=== PATIENT | female | born 1965 | race Caucasian/White ===

== ENCOUNTER 2016-05-08 07:16 | Inpatient (IN) | payer MEDICARE, MEDICAID ==
[~2016-05-08] VITALS: Ht 170.2 cm; Wt 72.6 kg
[2016-05-08] VITALS (7 sets, daily range): BP systolic 100–149; BP diastolic 58–96
[~2016-05-08 07:16] MED LIST: BENZ2TAB10 PO; DIVA500T69 PO; PALI156D IM
[2016-05-08 07:26] LABS: GLUCOSE,POINT OF CARE 140 MG/DL (70-110)
[2016-05-08] MEDS ORDERED: LURA40 PO (07:34)
[2016-05-08] MEDS ORDERED: PARO20TA24 PO (07:34)
[2016-05-08] MEDS ORDERED: ZIPR60CA2 PO (07:34)
[2016-05-08] MEDS ORDERED: ACETAMINOPHEN 325 MG TABLET PO ONE (07:45)
[2016-05-08 08:26] LABS: EOSINOPHILS % (AUTO) 0.1 % (1.0-6.0); HEMATOCRIT 39.8 % (36-46); HEMOGLOBIN 13.4 g/dL (12.0-16.0); LYMPHOCYTES # (AUTO) 1.4 K/uL (1.0-4.8); LYMPHOCYTES % (AUTO) 17.7 % (22.0-44.0); MEAN CORPUSCULAR HEMOGLOBIN 32.7 pg (26.0-34.0); MEAN CORPUSCULAR HGB CONC 33.6 G/dL (31.0-37.0); MEAN CORPUSCULAR VOLUME 97 fL (80-100); MONOCYTES # (AUTO) 0.6 K/uL (0.1-1.0); MONOCYTES % (AUTO) 6.9 % (2.0-9.0); NEUTROPHILS % (AUTO) 75.3 % (40.0-70.0); PLATELET COUNT (AUTO) 285 K/uL (150-450); RED BLOOD CELL COUNT(AUTO) 4.09 MIL/uL (4.00-5.20); RED CELL DISTRIBUTION WIDTH 14.3 % (11.5-14.5)
[2016-05-08 08:32] LABS: ANION GAP 10 mmol/L (8-16); CALCIUM, TOTAL 8.3 mg/dL (8.8-10.5); CARBON DIOXIDE 27 mmol/L (22-29); CHLORIDE 100 mmol/L (98-107); CREATININE 0.61 mg/dL (0.60-1.30); GLOMERULAR FILTR. RATE CALC > 60 mL/min (>60); POTASSIUM 3.4 mmol/L (3.5-5.1); SODIUM SERUM 137 mmol/L (136-145); UREA NITROGEN, BLOOD 16 mg/dL (7-18)
[2016-05-08 08:38] LABS: ALANINE AMINOTRANSFERASE 27 U/L (12-78); ALBUMIN 3.7 g/dL (3.4-5.0); ASPARTATE AMINOTRANSFERASE 24 U/L (15-37); BILIRUBIN,TOTAL 0.4 mg/dL (0.1-1.0)
[2016-05-08 08:39] LABS: VALPROIC ACID < 3 mcg/mL (50-100)
[2016-05-08] MEDS ORDERED: HALOPERIDOL LACTATE 5 MG/ML VIAL IM ONE (09:15)
[2016-05-08] MEDS ORDERED: LORazepam 2 MG/ML VIAL IM ONE (09:15)
[2016-05-08] MEDS ORDERED: GuaiFENesin/D-METHORPHAN [SUGAR-FREE] 200-20MG/10 ML SYRUP UDCUP PO PRN (09:30)
[2016-05-08] MEDS ORDERED: HydrOXYzine PAMOATE 50 MG CAPSULE PO PRN (09:30)
[2016-05-08] MEDS ORDERED: DIAZEPAM 10 MG TABLET PO PRN (09:30)
[2016-05-08] MEDS ORDERED: ZOLPIDEM TARTRATE 10 MG TABLET PO PRN (09:30)
[2016-05-08] MEDS ORDERED: OLANZapine 5 MG RAPDIS TABLET PO PRN (09:30)
[2016-05-08] MEDS ORDERED: CYANOCOBALAMIN 1,000 MCG/ML VIAL IM ONE (09:30)
[2016-05-08] MEDS ORDERED: LOPERAMIDE HCL 2 MG CAPSULE PO PRN (09:30)
[2016-05-08] MEDS ORDERED: PALIPERIDONE PALMITATE 234 MG/1.5 ML SYRINGE IM ONE (11:00)
[2016-05-08] MEDS ORDERED: LORazepam 2 MG TABLET PO PRN (11:00)
[2016-05-08] MEDS ORDERED: POTASSIUM CHLORIDE 20 MEQ ER TABLET PO ONE (12:00)
[2016-05-08] MEDS ORDERED: INSULIN ASPART 100 UNITS/ML SQ PRN (12:15)
[2016-05-08] MEDS ORDERED: DEXTROSE 50%-WATER 25 GM/50 ML SYRINGE IVP PRN (12:30)
[2016-05-08] MEDS: NICOTINE 21 MG/24 HOUR PATCH TD SCH (13:22)
[2016-05-08] MEDS: THIAMINE HCL 100 MG TABLET PO SCH (17:00)
[2016-05-08] MEDS: MetFORMIN HCL 500 MG TABLET PO SCH (17:00)
[2016-05-08 17:07] LABS: GLUCOSE,POINT OF CARE 95 MG/DL (70-110)
[2016-05-08] MEDS: DIVALPROEX SODIUM 500 MG ER TABLET PO SCH (20:19)
[2016-05-09 02:00] VITALS: BP 131/48
[2016-05-09] MEDS: LORazepam 2 MG TABLET PO PRN (04:08)
[2016-05-09 04:10] VITALS: BP 131/48
[2016-05-09 05:21] LABS: GLUCOSE,POINT OF CARE 89 MG/DL (70-110)
[2016-05-09 06:00] VITALS: BP 116/60
[2016-05-09] MEDS: MetFORMIN HCL 500 MG TABLET PO SCH ×2 (06:43→17:03)
[2016-05-09] MEDS ORDERED: LORazepam 2 MG TABLET PO PRN (07:00)
[2016-05-09] MEDS ORDERED: DIAZEPAM 10 MG TABLET PO PRN (07:00)
[2016-05-09 08:00] VITALS: BP 123/92
[2016-05-09] MEDS: PARoxetine HCL 10 MG TABLET PO SCH (08:21)
[2016-05-09] MEDS: FOLIC ACID 1 MG TABLET PO SCH (08:21)
[2016-05-09] MEDS: LORazepam 2 MG TABLET PO SCH ×4 (08:21→21:15)
[2016-05-09] MEDS: THIAMINE HCL 100 MG TABLET PO SCH ×2 (08:21→16:18)
[2016-05-09] MEDS: MULTIVITAMINS WITH MINERALS, THERAPEUTIC TABLET PO SCH (08:21)
[2016-05-09] MEDS: NICOTINE 21 MG/24 HOUR PATCH TD SCH (08:22)
[2016-05-09] MEDS ORDERED: DIAZEPAM 10 MG TABLET PO SCH (09:00)
[2016-05-09 10:00] VITALS: BP 130/89
[2016-05-09 16:21] LABS: GLUCOSE,POINT OF CARE 102 MG/DL (70-110)
[2016-05-09 19:03] VITALS: BP 122/81
[2016-05-09] MEDS: DIVALPROEX SODIUM 500 MG ER TABLET PO SCH (21:00)
[2016-05-10] MEDS: LORazepam 2 MG TABLET PO PRN (04:03)
[2016-05-10 04:11] LABS: GLUCOSE,POINT OF CARE 96 MG/DL (70-110)
[2016-05-10 04:35] VITALS: BP 119/76
[2016-05-10 04:39] VITALS: BP 119/76
[2016-05-10] MEDS: MetFORMIN HCL 500 MG TABLET PO SCH ×2 (06:49→17:12)
[2016-05-10] MEDS: MULTIVITAMINS WITH MINERALS, THERAPEUTIC TABLET PO SCH (07:59)
[2016-05-10] MEDS: LORazepam 2 MG TABLET PO SCH ×4 (08:00→20:31)
[2016-05-10] MEDS: PARoxetine HCL 10 MG TABLET PO SCH (08:00)
[2016-05-10] MEDS: NICOTINE 21 MG/24 HOUR PATCH TD SCH (08:00)
[2016-05-10] MEDS: THIAMINE HCL 100 MG TABLET PO SCH ×2 (08:00→17:10)
[2016-05-10] MEDS: FOLIC ACID 1 MG TABLET PO SCH (08:00)
[2016-05-10 09:42] VITALS: BP 124/72
[2016-05-10 09:43] VITALS: BP 124/72
[2016-05-10 16:31] LABS: GLUCOSE,POINT OF CARE 63 MG/DL (70-110)
[2016-05-10 17:16] LABS: GLUCOSE,POINT OF CARE 93 MG/DL (70-110)
[2016-05-10] MEDS: DIVALPROEX SODIUM 500 MG ER TABLET PO SCH (20:33)
[2016-05-10 20:49] VITALS: BP 130/78
[2016-05-11] MEDS: IBUPROFEN 600 MG TABLET PO PRN (02:59)
[2016-05-11 03:00] VITALS: BP 130/70
[2016-05-11 05:25] LABS: GLUCOSE,POINT OF CARE 85 MG/DL (70-110)
[2016-05-11] MEDS: MetFORMIN HCL 500 MG TABLET PO SCH ×2 (06:39→17:41)
[2016-05-11 06:49] VITALS: BP 98/65
[2016-05-11] MEDS ORDERED: LORazepam 1 MG TABLET PO PRN (07:00)
[2016-05-11] MEDS ORDERED: DIAZEPAM 5 MG TABLET PO PRN (07:00)
[2016-05-11] MEDS: LORazepam 1 MG TABLET PO SCH ×4 (08:53→20:36)
[2016-05-11] MEDS: MULTIVITAMINS WITH MINERALS, THERAPEUTIC TABLET PO SCH (08:53)
[2016-05-11] MEDS: PARoxetine HCL 10 MG TABLET PO SCH (08:54)
[2016-05-11] MEDS: NICOTINE 21 MG/24 HOUR PATCH TD SCH (08:54)
[2016-05-11] MEDS: FOLIC ACID 1 MG TABLET PO SCH (08:54)
[2016-05-11] MEDS: THIAMINE HCL 100 MG TABLET PO SCH ×2 (08:54→17:41)
[2016-05-11] MEDS ORDERED: DIAZEPAM 5 MG TABLET PO SCH (09:00)
[2016-05-11 10:31] VITALS: BP 103/77
[2016-05-11 10:32] VITALS: BP 103/77
[2016-05-11 16:05] VITALS: BP 131/76
[2016-05-11 16:47] LABS: GLUCOSE,POINT OF CARE 98 MG/DL (70-110)
[2016-05-11] MEDS ORDERED: PALI156D IM (18:29)
[2016-05-11] MEDS ORDERED: PARO10TA89 PO (18:29)
[2016-05-11] MEDS ORDERED: DIVA500T52 PO (18:29)
[2016-05-11] MEDS: DIVALPROEX SODIUM 500 MG ER TABLET PO SCH (20:35)
[2016-05-12 04:48] VITALS: BP 109/83
[2016-05-12] MEDS: IBUPROFEN 600 MG TABLET PO PRN (04:54)
[2016-05-12 06:07] LABS: GLUCOSE,POINT OF CARE 95 MG/DL (70-110)
[2016-05-12] MEDS ORDERED: DIAZEPAM 5 MG TABLET PO PRN (07:00)
[2016-05-12] MEDS ORDERED: LORazepam 1 MG TABLET PO PRN (07:00)
[2016-05-12] MEDS: MetFORMIN HCL 500 MG TABLET PO SCH (07:09)
[2016-05-12 08:05] VITALS: BP 112/80
[2016-05-12] MEDS: MULTIVITAMINS WITH MINERALS, THERAPEUTIC TABLET PO SCH (08:14)
[2016-05-12] MEDS: FOLIC ACID 1 MG TABLET PO SCH (08:14)
[2016-05-12] MEDS: THIAMINE HCL 100 MG TABLET PO SCH (08:15)
[2016-05-12] MEDS: PARoxetine HCL 10 MG TABLET PO SCH (08:15)
[2016-05-12] MEDS: NICOTINE 21 MG/24 HOUR PATCH TD SCH (08:15)
[2016-05-12] MEDS ORDERED: METF500T4 PO (08:32)
[2016-05-12] MEDS ORDERED: PARO10TA89 PO (08:32)
[2016-05-12] MEDS ORDERED: PALIPERIDONE PALMITATE 156 MG/ML SYRINGE IM ONE (09:00)
[2016-05-12 09:30] VITALS: BP 112/80
== END 2016-05-12 12:00 | disposition home or self-care (01) | DRG 885 ==
LOC: EEVIPCON 07:18 → EMS 07:18 → 3EX 10:30
PROVIDERS: ADMIT Psychiatry & Neurology Psychiatry; ATTEND Psychiatry & Neurology Psychiatry
DX: F25.0 Schizoaffective disorder, bipolar type (principal); R45.851 Suicidal ideations; E03.9 Hypothyroidism, unspecified; E78.00 Pure hypercholesterolemia, unspecified; E78.5 Hyperlipidemia, unspecified; F32.9 Major depressive disorder, single episode, unspecified; F41.9 Anxiety disorder, unspecified; I10 Essential (primary) hypertension; J44.9 Chronic obstructive pulmonary disease, unspecified; J45.909 Unspecified asthma, uncomplicated; K21.9 Gastro-esophageal reflux disease without esophagitis; F17.210 Nicotine dependence, cigarettes, uncomplicated; N28.9 Disorder of kidney and ureter, unspecified; B19.20 Unspecified viral hepatitis C without hepatic coma; Z87.440 Personal history of urinary (tract) infections; Z87.898 Personal history of other specified conditions; Z91.19 Patient's noncompliance with other medical treatment and regimen; Z88.8 Allergy status to other drugs, medicaments and biological substances; Z79.899 Other long term (current) drug therapy; Z98.890 Other specified postprocedural states
CPT/HCPCS: 82962; 96372; 99285; G0480; J1630; J2060; J3420

== ENCOUNTER 2016-12-18 15:19 | Inpatient (IN) | payer MEDICARE, MEDICAID ==
[~2016-12-18] VITALS: Ht 170.2 cm; Wt 68.7 kg
[~2016-12-18 15:19] MED LIST changes: -BENZ2TAB10 PO; +DIVA500T52 PO; +METF500T4 PO; +PARO10TA89 PO
[2016-12-18 18:34] LABS: BASOPHILS % (AUTO) 0.7 % (0.0-2.0); EOSINOPHILS % (AUTO) 1.3 % (1.0-6.0); HEMATOCRIT 39.7 % (36-46); HEMOGLOBIN 13.7 g/dL (12.0-16.0); LYMPHOCYTES # (AUTO) 2.8 K/uL (1.0-4.8); LYMPHOCYTES % (AUTO) 34.2 % (22.0-44.0); MEAN CORPUSCULAR HEMOGLOBIN 35.3 pg (26.0-34.0); MEAN CORPUSCULAR HGB CONC 34.7 G/dL (31.0-37.0); MEAN CORPUSCULAR VOLUME 102 fL (80-100); MONOCYTES # (AUTO) 0.5 K/uL (0.1-1.0); MONOCYTES % (AUTO) 6.4 % (2.0-9.0); NEUTROPHILS # (AUTO) 4.8 K/uL (1.8-7.7); NEUTROPHILS % (AUTO) 57.4 % (40.0-70.0); PLATELET COUNT (AUTO) 269 K/uL (150-450); RED BLOOD CELL COUNT(AUTO) 3.89 MIL/uL (4.00-5.20); RED CELL DISTRIBUTION WIDTH 14.1 % (11.5-14.5); WHITE BLOOD COUNT (AUTO) 8.3 K/uL (4.5-11.0)
[2016-12-18 18:50] LABS: ANION GAP 10 mmol/L (8-16); CALCIUM, TOTAL 8.5 mg/dL (8.8-10.5); CARBON DIOXIDE 25 mmol/L (22-29); CHLORIDE 107 mmol/L (98-107); CREATININE 0.71 mg/dL (0.60-1.30); GLOMERULAR FILTR. RATE CALC > 60 mL/min (>60); POTASSIUM 3.6 mmol/L (3.5-5.1); SODIUM SERUM 142 mmol/L (136-145); UREA NITROGEN, BLOOD 14 mg/dL (7-18)
[2016-12-18 18:56] LABS: RBC MORPHOLOGY COMMENT ABNORMAL RBC MORPH
[2016-12-18 18:58] LABS: ALANINE AMINOTRANSFERASE 13 U/L (12-78); ALBUMIN 3.4 g/dL (3.4-5.0); ASPARTATE AMINOTRANSFERASE 14 U/L (15-37); BILIRUBIN,TOTAL 0.2 mg/dL (0.1-1.0); TOTAL PROTEIN, SERUM 6.4 g/dL (6.4-8.2)
[2016-12-18 19:57] LABS: VALPROIC ACID < 3 mcg/mL (50-100)
[2016-12-18] MEDS ORDERED: ACETAMINOPHEN 500 MG TABLET PO ONE (20:00)
[2016-12-18] MEDS ORDERED: ZOLPIDEM TARTRATE 10 MG TABLET PO PRN (20:15)
[2016-12-18] MEDS ORDERED: LORazepam 2 MG TABLET PO PRN (20:15)
[2016-12-18] MEDS ORDERED: HALOPERIDOL 5 MG TABLET PO PRN (20:15)
[2016-12-19 00:48] VITALS: BP 118/68
[2016-12-19 08:58] VITALS: BP 108/69
[2016-12-19] MEDS: NICOTINE 21 MG/24 HOUR PATCH TD SCH (09:22)
[2016-12-19] MEDS: PARoxetine HCL 10 MG TABLET PO SCH (10:30)
[2016-12-19] MEDS ORDERED: PALIPERIDONE PALMITATE 234 MG/1.5 ML SYRINGE IM ONE (10:30)
[2016-12-19] MEDS ORDERED: ACETAMINOPHEN 325 MG TABLET PO PRN (16:15)
[2016-12-19 16:22] VITALS: BP 108/67
[2016-12-19] MEDS: DIVALPROEX SODIUM 500 MG ER TABLET PO SCH (20:59)
[2016-12-20 02:47] VITALS: BP 107/67
[2016-12-20] MEDS: HYDROCORTISONE 1% 30 GM OINTMENT TP SCH ×3 (07:00→17:06)
[2016-12-20 08:12] VITALS: BP 103/66
[2016-12-20] MEDS: PARoxetine HCL 10 MG TABLET PO SCH (09:00)
[2016-12-20] MEDS: NICOTINE 21 MG/24 HOUR PATCH TD SCH (09:21)
[2016-12-20 14:12] VITALS: BP 104/64
[2016-12-20 16:43] VITALS: BP 101/63
[2016-12-20] MEDS: DIVALPROEX SODIUM 500 MG ER TABLET PO SCH (21:00)
[2016-12-21] MEDS ORDERED: PNEUMOCOCCAL VACCINE POLYVALENT 0.5 ML VIAL [PPSV23] IM ONE (02:30)
[2016-12-21] MEDS ORDERED: -PHARMACY VACCINE NOTE- MISC ONE ×2 (02:30)
[2016-12-21 06:37] VITALS: BP 108/60
[2016-12-21 08:01] LABS: HEMOGLOBIN A1C 5.5 % (4.5-6.2)
[2016-12-21 08:12] LABS: CHOL/HDL RATIO 4.8 (3.9-5.7); THYROID STIMULATING HORMONE 3.7 uIU/mL (0.36-3.74)
[2016-12-21] MEDS: PARoxetine HCL 10 MG TABLET PO SCH (09:00)
[2016-12-21 09:37] VITALS: BP 104/62
[2016-12-21] MEDS: NICOTINE 21 MG/24 HOUR PATCH TD SCH (09:41)
[2016-12-21] MEDS: HYDROCORTISONE 1% 30 GM OINTMENT TP SCH ×2 (09:43→17:05)
[2016-12-21] MEDS ORDERED: MAGNESIUM HYDROXIDE SUSPENSION 30 ML UDCUP PO PRN (14:30)
[2016-12-21] MEDS ORDERED: MAG HYDROX/AL HYDROX/SIMETH ES 30 ML SUSPENSION UDCUP PO PRN (14:30)
[2016-12-21] MEDS ORDERED: LORazepam 2 MG TABLET PO PRN (14:30)
[2016-12-21] MEDS ORDERED: CYANOCOBALAMIN 1,000 MCG/ML VIAL IM ONE (14:30)
[2016-12-21] MEDS ORDERED: TUBERCULIN, PURIFIED PROTEIN DERIVATIVE 5 TU/0.1 ML SYG ID ONE (14:30)
[2016-12-21] MEDS ORDERED: GuaiFENesin/D-METHORPHAN [SUGAR-FREE] 200-20MG/10 ML SYRUP UDCUP PO PRN (14:30)
[2016-12-21] MEDS ORDERED: HydrOXYzine PAMOATE 50 MG CAPSULE PO PRN (14:30)
[2016-12-21] MEDS ORDERED: LOPERAMIDE HCL 2 MG CAPSULE PO PRN ×2 (14:30)
[2016-12-21] MEDS ORDERED: ACETAMINOPHEN 325 MG TABLET PO PRN (14:30)
[2016-12-21] MEDS ORDERED: PROMETHAZINE HCL 25 MG TABLET PO PRN (14:30)
[2016-12-21 14:35] VITALS: BP 108/68
[2016-12-21] MEDS ORDERED: OLANZapine 5 MG RAPDIS TABLET PO PRN (14:45)
[2016-12-21 16:14] VITALS: BP 108/66
[2016-12-21] MEDS: ZIPRASIDONE HCL 20 MG CAPSULE PO SCH (17:04)
[2016-12-21] MEDS: GABAPENTIN 300 MG CAPSULE PO SCH ×2 (17:04→20:34)
[2016-12-21] MEDS: THIAMINE HCL 100 MG TABLET PO SCH (17:04)
[2016-12-21 20:30] VITALS: BP 113/65
[2016-12-21 22:43] VITALS: BP 115/68
[2016-12-22] VITALS: BP 102/64
[2016-12-22 00:15] VITALS: BP 102/64
[2016-12-22 04:00] VITALS: BP 114/56
[2016-12-22] MEDS: ZIPRASIDONE HCL 20 MG CAPSULE PO SCH ×2 (06:36→17:26)
[2016-12-22] MEDS ORDERED: LORazepam 2 MG TABLET PO PRN (07:00)
[2016-12-22 08:00] VITALS: BP 99/67
[2016-12-22] MEDS: NICOTINE 21 MG/24 HOUR PATCH TD SCH (09:06)
[2016-12-22] MEDS: GABAPENTIN 300 MG CAPSULE PO SCH ×4 (09:06→20:41)
[2016-12-22] MEDS: THIAMINE HCL 100 MG TABLET PO SCH ×2 (09:07→17:26)
[2016-12-22] MEDS: MULTIVITAMINS WITH MINERALS, THERAPEUTIC TABLET PO SCH (09:07)
[2016-12-22] MEDS: FOLIC ACID 1 MG TABLET PO SCH (09:07)
[2016-12-22] MEDS: PARoxetine HCL 10 MG TABLET PO SCH (09:07)
[2016-12-22] MEDS: LORazepam 2 MG TABLET PO SCH ×4 (09:07→20:41)
[2016-12-22] MEDS: NALTREXONE HCL 50 MG TABLET PO SCH (09:08)
[2016-12-22] MEDS: HYDROCORTISONE 1% 30 GM OINTMENT TP SCH ×2 (09:09→17:26)
[2016-12-22] MEDS ORDERED: BISACODYL 5 MG EC TABLET PO PRN (09:30)
[2016-12-22 12:00] VITALS: BP 105/68
[2016-12-22 17:27] VITALS: BP 109/76
[2016-12-23 02:41] VITALS: BP 106/63
[2016-12-23 02:42] VITALS: BP 106/63
[2016-12-23] MEDS: ZIPRASIDONE HCL 20 MG CAPSULE PO SCH ×2 (07:04→17:00)
[2016-12-23 08:24] VITALS: BP 103/67
[2016-12-23 09:05] VITALS: BP 110/68
[2016-12-23] MEDS: THIAMINE HCL 100 MG TABLET PO SCH ×2 (09:08→17:01)
[2016-12-23] MEDS: PARoxetine HCL 10 MG TABLET PO SCH (09:08)
[2016-12-23] MEDS: FOLIC ACID 1 MG TABLET PO SCH (09:08)
[2016-12-23] MEDS: NALTREXONE HCL 50 MG TABLET PO SCH (09:08)
[2016-12-23] MEDS: MULTIVITAMINS WITH MINERALS, THERAPEUTIC TABLET PO SCH (09:08)
[2016-12-23] MEDS: GABAPENTIN 300 MG CAPSULE PO SCH ×4 (09:08→20:44)
[2016-12-23] MEDS: LORazepam 2 MG TABLET PO SCH ×4 (09:09→20:44)
[2016-12-23] MEDS: NICOTINE 21 MG/24 HOUR PATCH TD SCH (09:09)
[2016-12-23] MEDS: HYDROCORTISONE 1% 30 GM OINTMENT TP SCH ×2 (09:10→17:01)
[2016-12-23 13:00] VITALS: BP 116/65
[2016-12-23 16:17] VITALS: BP 112/69
[2016-12-24 06:10] VITALS: BP 107/66
[2016-12-24 06:11] VITALS: BP 107/66
[2016-12-24] MEDS ORDERED: LORazepam 1 MG TABLET PO PRN (07:00)
[2016-12-24] MEDS: ZIPRASIDONE HCL 20 MG CAPSULE PO SCH ×2 (07:01→17:02)
[2016-12-24 08:18] VITALS: BP 107/70
[2016-12-24] MEDS: GABAPENTIN 300 MG CAPSULE PO SCH ×4 (08:35→20:33)
[2016-12-24] MEDS: FOLIC ACID 1 MG TABLET PO SCH (08:36)
[2016-12-24] MEDS: THIAMINE HCL 100 MG TABLET PO SCH ×2 (08:36→17:01)
[2016-12-24] MEDS: MULTIVITAMINS WITH MINERALS, THERAPEUTIC TABLET PO SCH (08:36)
[2016-12-24] MEDS: PARoxetine HCL 10 MG TABLET PO SCH (08:36)
[2016-12-24] MEDS: NALTREXONE HCL 50 MG TABLET PO SCH (08:36)
[2016-12-24] MEDS: LORazepam 1 MG TABLET PO SCH ×4 (08:36→20:33)
[2016-12-24] MEDS: NICOTINE 21 MG/24 HOUR PATCH TD SCH (08:37)
[2016-12-24] MEDS: HYDROCORTISONE 1% 30 GM OINTMENT TP SCH ×2 (08:47→17:02)
[2016-12-24 13:04] VITALS: BP 110/66
[2016-12-24] MEDS ORDERED: ALBUTEROL SULFATE HFA 90 MCG/PUFF 8 GM INHALER IH PRN (14:15)
[2016-12-24] MEDS ORDERED: PARO10TA71 PO (15:04)
[2016-12-24] MEDS ORDERED: ZIPR20CA2 PO (15:04)
[2016-12-24] MEDS ORDERED: NALT50TA PO (15:04)
[2016-12-24] MEDS ORDERED: GABA-531 PO (15:04)
[2016-12-24 16:13] VITALS: BP 113/67
[2016-12-24 17:06] VITALS: BP 113/67
[2016-12-25 05:14] VITALS: BP 112/68
[2016-12-25] MEDS: ZIPRASIDONE HCL 20 MG CAPSULE PO SCH (06:52)
[2016-12-25] MEDS ORDERED: LORazepam 1 MG TABLET PO PRN (07:00)
[2016-12-25 08:37] VITALS: BP_SYST 11; BP_SYST 111; BP_DIAS 76
[2016-12-25] MEDS: GABAPENTIN 300 MG CAPSULE PO SCH (08:38)
[2016-12-25] MEDS: MULTIVITAMINS WITH MINERALS, THERAPEUTIC TABLET PO SCH (08:38)
[2016-12-25] MEDS: THIAMINE HCL 100 MG TABLET PO SCH (08:38)
[2016-12-25] MEDS: NALTREXONE HCL 50 MG TABLET PO SCH (08:38)
[2016-12-25] MEDS: PARoxetine HCL 10 MG TABLET PO SCH (08:38)
[2016-12-25] MEDS: FOLIC ACID 1 MG TABLET PO SCH (08:38)
[2016-12-25] MEDS: NICOTINE 21 MG/24 HOUR PATCH TD SCH (08:39)
[2016-12-25] MEDS: HYDROCORTISONE 1% 30 GM OINTMENT TP SCH (08:40)
[2016-12-25] MEDS ORDERED: FOLI1 PO (09:26)
[2016-12-25] MEDS ORDERED: THIA100 PO (09:26)
[2016-12-25] MEDS ORDERED: MULT-1239 PO (09:26)
[2016-12-25] MEDS ORDERED: HC1C1.5 TP (09:26)
[2017-04-22] MEDS ORDERED: DIVA500T52 PO (14:47)
[2017-04-22] MEDS ORDERED: PARO10TA89 PO (14:50)
[2017-04-22] MEDS ORDERED: GABA-531 PO (14:50)
[2017-04-22] MEDS ORDERED: ZIPR80CA2 PO (14:51)
[2017-04-22] MEDS ORDERED: THIA100 PO (14:51)
== END 2016-12-25 10:40 | disposition home or self-care (01) | DRG 885 ==
LOC: EMS 15:23 → B2X 23:31
PROVIDERS: ADMIT Psychiatry & Neurology Child & Adolescent Psychiatry; ATTEND Psychiatry & Neurology Psychiatry
DX: F25.0 Schizoaffective disorder, bipolar type (principal); R56.9 Unspecified convulsions; E11.9 Type 2 diabetes mellitus without complications; I10 Essential (primary) hypertension; B19.20 Unspecified viral hepatitis C without hepatic coma; Z28.21 Immunization not carried out because of patient refusal; E03.9 Hypothyroidism, unspecified; E78.00 Pure hypercholesterolemia, unspecified; F32.9 Major depressive disorder, single episode, unspecified; N28.9 Disorder of kidney and ureter, unspecified; M54.2 Cervicalgia; E78.5 Hyperlipidemia, unspecified; G89.29 Other chronic pain; J44.9 Chronic obstructive pulmonary disease, unspecified; K59.00 Constipation, unspecified; L30.9 Dermatitis, unspecified; F17.210 Nicotine dependence, cigarettes, uncomplicated; Z91.14 Patient's other noncompliance with medication regimen; Z91.19 Patient's noncompliance with other medical treatment and regimen; Z88.8 Allergy status to other drugs, medicaments and biological substances; Z59.9 Problem related to housing and economic circumstances, unspecified; Z65.3 Problems related to other legal circumstances; Z63.9 Problem related to primary support group, unspecified; Z87.898 Personal history of other specified conditions; Z72.89 Other problems related to lifestyle
CPT/HCPCS: 83036; 84439; 84443; 93005; 99285; G0480; J3420

== ENCOUNTER 2017-01-04 07:59 | Emergency (ER) | payer OTHER ==
[~2017-01-04] VITALS: Ht 170.2 cm; Wt 68.1 kg
[~2017-01-04 07:59] MED LIST changes: -DIVA500T52 PO; -DIVA500T69 PO; +FOLI1 PO; +GABA-531 PO; +HC1C1.5 TP; -METF500T4 PO; +MULT-1239 PO; +NALT50TA PO; -PALI156D IM; +PARO10TA71 PO; -PARO10TA89 PO; +THIA100 PO; +ZIPR20CA2 PO
[2017-01-04 08:27] VITALS: BP 124/82
[2017-01-04 08:32] LABS: GLUCOSE,POINT OF CARE 114 MG/DL (70-110)
[2017-01-04 08:54] LABS: ANION GAP 7 mmol/L (8-16); CALCIUM, TOTAL 8.7 mg/dL (8.8-10.5); CARBON DIOXIDE 27 mmol/L (22-29); CHLORIDE 105 mmol/L (98-107); CREATININE 0.66 mg/dL (0.60-1.30); GLOMERULAR FILTR. RATE CALC > 60 mL/min (>60); POTASSIUM 4.4 mmol/L (3.5-5.1); SODIUM SERUM 139 mmol/L (136-145); UREA NITROGEN, BLOOD 9 mg/dL (7-18)
[2017-01-04 09:01] LABS: ALANINE AMINOTRANSFERASE 17 U/L (12-78); ALBUMIN 3.8 g/dL (3.4-5.0); ASPARTATE AMINOTRANSFERASE 17 U/L (15-37); BILIRUBIN,TOTAL 0.3 mg/dL (0.1-1.0); TOTAL PROTEIN, SERUM 6.9 g/dL (6.4-8.2)
[2017-01-04 09:07] LABS: BASOPHILS % (AUTO) 0.4 % (0.0-2.0); EOSINOPHILS % (AUTO) 0.5 % (1.0-6.0); HEMATOCRIT 41.5 % (36-46); HEMOGLOBIN 14.4 g/dL (12.0-16.0); LYMPHOCYTES # (AUTO) 2.1 K/uL (1.0-4.8); LYMPHOCYTES % (AUTO) 23.5 % (22.0-44.0); MEAN CORPUSCULAR HEMOGLOBIN 34.8 pg (26.0-34.0); MEAN CORPUSCULAR HGB CONC 34.6 G/dL (31.0-37.0); MEAN CORPUSCULAR VOLUME 101 fL (80-100); MONOCYTES # (AUTO) 0.4 K/uL (0.1-1.0); MONOCYTES % (AUTO) 4.4 % (2.0-9.0); NEUTROPHILS # (AUTO) 6.4 K/uL (1.8-7.7); NEUTROPHILS % (AUTO) 71.2 % (40.0-70.0); PLATELET COUNT (AUTO) 293 K/uL (150-450); RED BLOOD CELL COUNT(AUTO) 4.13 MIL/uL (4.00-5.20); RED CELL DISTRIBUTION WIDTH 13.8 % (11.5-14.5)
[2017-01-04 09:27] LABS: RBC MORPHOLOGY COMMENT ABNORMAL RBC MORPH
[2017-04-22] MEDS ORDERED: DIVA500T52 PO (14:47)
[2017-04-22] MEDS ORDERED: GABA-531 PO (14:50)
[2017-04-22] MEDS ORDERED: PARO10TA89 PO (14:50)
[2017-04-22] MEDS ORDERED: THIA100 PO (14:51)
[2017-04-22] MEDS ORDERED: ZIPR80CA2 PO (14:51)
== END 2017-01-04 10:18 | disposition home or self-care (01) ==
LOC: EMS 08:03
DX: F20.0 Paranoid schizophrenia (principal); J45.909 Unspecified asthma, uncomplicated; F31.9 Bipolar disorder, unspecified; E78.00 Pure hypercholesterolemia, unspecified; E03.9 Hypothyroidism, unspecified; I10 Essential (primary) hypertension; J44.9 Chronic obstructive pulmonary disease, unspecified; F17.210 Nicotine dependence, cigarettes, uncomplicated; F12.90 Cannabis use, unspecified, uncomplicated; F15.90 Other stimulant use, unspecified, uncomplicated; Z88.8 Allergy status to other drugs, medicaments and biological substances
CPT/HCPCS: 36415; 80053; 82962; 85025; 99285; G0480

== ENCOUNTER 2017-04-01 07:30 | Emergency (ER) | payer OTHER ==
[~2017-04-01] VITALS: Ht 167.6 cm; Wt 68.1 kg
[2017-04-01 10:27] VITALS: BP 119/71
[2017-04-22] MEDS ORDERED: DIVA500T52 PO (14:47)
[2017-04-22] MEDS ORDERED: PARO10TA89 PO (14:50)
[2017-04-22] MEDS ORDERED: GABA-531 PO (14:50)
[2017-04-22] MEDS ORDERED: THIA100 PO (14:51)
[2017-04-22] MEDS ORDERED: ZIPR80CA2 PO (14:51)
== END 2017-04-01 10:59 | disposition home or self-care (01) ==
LOC: EMS 07:34
DX: F20.9 Schizophrenia, unspecified (principal); J45.909 Unspecified asthma, uncomplicated; J44.9 Chronic obstructive pulmonary disease, unspecified; F31.9 Bipolar disorder, unspecified; E78.00 Pure hypercholesterolemia, unspecified; E03.9 Hypothyroidism, unspecified; I10 Essential (primary) hypertension; F17.210 Nicotine dependence, cigarettes, uncomplicated; F12.90 Cannabis use, unspecified, uncomplicated; F15.90 Other stimulant use, unspecified, uncomplicated; Z88.8 Allergy status to other drugs, medicaments and biological substances; Z59.0 Homelessness
CPT/HCPCS: 99283

== ENCOUNTER 2017-06-19 18:24 | Emergency (ER) | payer MEDICARE, MEDICAID ==
[~2017-06-19] VITALS: Ht 170.2 cm; Wt 68.0 kg
[~2017-06-19 18:24] MED LIST changes: +DIVA500T52 PO; -FOLI1 PO; -HC1C1.5 TP; -MULT-1239 PO; -NALT50TA PO; -PARO10TA71 PO; +PARO10TA89 PO; -ZIPR20CA2 PO; +ZIPR80CA2 PO
[2017-06-19 18:43] VITALS: BP 106/68
== END 2017-06-19 20:35 | disposition left against medical advice (07) ==
LOC: EMS 18:27
DX: R45.1 Restlessness and agitation (principal); E78.00 Pure hypercholesterolemia, unspecified; I10 Essential (primary) hypertension; E03.9 Hypothyroidism, unspecified; J45.909 Unspecified asthma, uncomplicated; F31.9 Bipolar disorder, unspecified; F20.9 Schizophrenia, unspecified; F17.210 Nicotine dependence, cigarettes, uncomplicated; F12.90 Cannabis use, unspecified, uncomplicated; F15.90 Other stimulant use, unspecified, uncomplicated; Z53.21 Procedure and treatment not carried out due to patient leaving prior to being seen by health care provider

== ENCOUNTER 2017-07-09 21:31 | Emergency (ER) | payer MEDICARE, MEDICAID ==
[~2017-07-09] VITALS: Ht 170.2 cm; Wt 66.8 kg
[2017-07-10 00:06] LABS: ANION GAP 13 mmol/L (8-16); CALCIUM, TOTAL 8.4 mg/dL (8.8-10.5); CARBON DIOXIDE 26 mmol/L (22-29); CHLORIDE 109 mmol/L (98-107); CREATININE 0.56 mg/dL (0.60-1.30); GLOMERULAR FILTR. RATE CALC > 60 mL/min (>60); GLUCOSE,RANDOM 96 mg/dL (70-110); POTASSIUM 4.4 mmol/L (3.5-5.1); SODIUM SERUM 148 mmol/L (136-145); UREA NITROGEN, BLOOD 7 mg/dL (7-18)
[2017-07-10 00:07] LABS: EOSINOPHILS % (AUTO) 1.4 % (1.0-6.0); HEMATOCRIT 39.5 % (36-46); HEMOGLOBIN 13.4 g/dL (12.0-16.0); LYMPHOCYTES # (AUTO) 2.3 K/uL (1.0-4.8); LYMPHOCYTES % (AUTO) 31.5 % (22.0-44.0); MEAN CORPUSCULAR HEMOGLOBIN 33.4 pg (26.0-34.0); MEAN CORPUSCULAR HGB CONC 33.9 G/dL (31.0-37.0); MEAN CORPUSCULAR VOLUME 99 fL (80-100); MONOCYTES # (AUTO) 0.5 K/uL (0.1-1.0); MONOCYTES % (AUTO) 6.7 % (2.0-9.0); NEUTROPHILS # (AUTO) 4.2 K/uL (1.8-7.7); NEUTROPHILS % (AUTO) 59.4 % (40.0-70.0); PLATELET COUNT (AUTO) 402 K/uL (150-450); RED CELL DISTRIBUTION WIDTH 13.8 % (11.5-14.5)
[2017-07-10 00:11] LABS: ALANINE AMINOTRANSFERASE 27 U/L (12-78); ALBUMIN 3.2 g/dL (3.4-5.0); ALKALINE PHOSPHATASE 70 U/L (46-116); ASPARTATE AMINOTRANSFERASE 22 U/L (15-37); BILIRUBIN,TOTAL 0.1 mg/dL (0.1-1.0); TOTAL PROTEIN, SERUM 6.6 g/dL (6.4-8.2)
[2017-07-10 04:33] VITALS: BP 127/84
== END 2017-07-10 04:43 | disposition home or self-care (01) ==
LOC: EMS 21:45
DX: F10.239 Alcohol dependence with withdrawal, unspecified (principal); F17.210 Nicotine dependence, cigarettes, uncomplicated; J45.909 Unspecified asthma, uncomplicated; J44.9 Chronic obstructive pulmonary disease, unspecified; E78.00 Pure hypercholesterolemia, unspecified; I10 Essential (primary) hypertension; E03.9 Hypothyroidism, unspecified; F12.90 Cannabis use, unspecified, uncomplicated; F15.90 Other stimulant use, unspecified, uncomplicated; Z88.8 Allergy status to other drugs, medicaments and biological substances; Y90.7 Blood alcohol level of 200-239 mg/100 ml
CPT/HCPCS: 36415; 80053; 82962; 85025; 99284; 99406; G0480

== ENCOUNTER 2017-07-30 19:48 | Inpatient (IN) | payer MEDICARE, MEDICAID ==
[~2017-07-30] VITALS: Ht 172.1 cm; Wt 67.2 kg
[~2017-07-30 19:48] MED LIST changes: -THIA100 PO; +THIA100T67 PO
[2017-07-30 20:39] LABS: EOSINOPHILS % (AUTO) 0.5 % (1.0-6.0); HEMATOCRIT 36.3 % (36-46); HEMOGLOBIN 12.6 g/dL (12.0-16.0); MEAN CORPUSCULAR HEMOGLOBIN 33.3 pg (26.0-34.0); MEAN CORPUSCULAR HGB CONC 34.7 G/dL (31.0-37.0); MEAN CORPUSCULAR VOLUME 96 fL (80-100); MONOCYTES # (AUTO) 0.7 K/uL (0.1-1.0); MONOCYTES % (AUTO) 6.9 % (2.0-9.0); NEUTROPHILS # (AUTO) 6.3 K/uL (1.8-7.7); NEUTROPHILS % (AUTO) 61.6 % (40.0-70.0); PLATELET COUNT (AUTO) 351 K/uL (150-450); RED BLOOD CELL COUNT(AUTO) 3.78 MIL/uL (4.00-5.20); RED CELL DISTRIBUTION WIDTH 13.9 % (11.5-14.5)
[2017-07-30 20:48] LABS: AMPHET/METH SCREEN,URINE NEGATIVE (NEGATIVE); BARBITURATE SCREEN, URINE NEGATIVE (NEGATIVE); BENZODIAZEPINES SCREEN,URINE NEGATIVE (NEGATIVE); CANNABINOID SCREEN,URINE NEGATIVE (NEGATIVE); COCAINE SCREEN,URINE NEGATIVE (NEGATIVE); METHADONE SCREEN, URINE NEGATIVE (NEGATIVE); OPIATE SCREEN,URINE NEGATIVE (NEGATIVE)
[2017-07-30 20:49] LABS: PHENCYCLIDINE SCREEN,URINE NEGATIVE (NEGATIVE)
[2017-07-30 21:02] LABS: ANION GAP 3 mmol/L (8-16); CALCIUM, TOTAL 8.8 mg/dL (8.8-10.5); CARBON DIOXIDE 29 mmol/L (22-29); CHLORIDE 106 mmol/L (98-107); CREATININE 0.68 mg/dL (0.60-1.30); GLOMERULAR FILTR. RATE CALC > 60 mL/min (>60); GLUCOSE,RANDOM 83 mg/dL (70-110); POTASSIUM 3.6 mmol/L (3.5-5.1); SODIUM SERUM 138 mmol/L (136-145); UREA NITROGEN, BLOOD 15 mg/dL (7-18)
[2017-07-30 21:08] LABS: ALANINE AMINOTRANSFERASE 18 U/L (12-78); ALBUMIN 3.2 g/dL (3.4-5.0); ALKALINE PHOSPHATASE 65 U/L (46-116); ASPARTATE AMINOTRANSFERASE 16 U/L (15-37); BILIRUBIN,TOTAL 0.2 mg/dL (0.1-1.0); TOTAL PROTEIN, SERUM 6.6 g/dL (6.4-8.2)
[2017-07-30] MEDS ORDERED: LORazepam 2 MG TABLET PO PRN (22:15)
[2017-07-30] MEDS ORDERED: HALOPERIDOL 5 MG TABLET PO PRN (22:15)
[2017-07-30] MEDS ORDERED: ZOLPIDEM TARTRATE 10 MG TABLET PO PRN (22:15)
[2017-07-31 02:45] VITALS: BP 114/72
[2017-07-31 07:15] LABS: CHOL/HDL RATIO 3.5 (3.9-5.7)
[2017-07-31 08:06] VITALS: BP 107/66
[2017-07-31] MEDS: ZIPRASIDONE HCL 80 MG CAPSULE PO SCH (18:37)
[2017-07-31] MEDS: DIVALPROEX SODIUM 500 MG ER TABLET PO SCH (20:16)
[2017-07-31 20:45] VITALS: BP 107/67
[2017-08-01] MEDS: ZIPRASIDONE HCL 80 MG CAPSULE PO SCH ×2 (06:44→18:43)
[2017-08-01] MEDS: PARoxetine HCL 10 MG TABLET PO SCH (08:16)
[2017-08-01 10:28] VITALS: BP 108/71
[2017-08-01 17:13] VITALS: BP 107/63
[2017-08-01] MEDS: DIVALPROEX SODIUM 500 MG ER TABLET PO SCH (21:00)
[2017-08-02] VITALS (11 sets, daily range): BP systolic 103–121; BP diastolic 56–82
[2017-08-02] MEDS: ZIPRASIDONE HCL 80 MG CAPSULE PO SCH (06:45)
[2017-08-02 07:16] LABS: HEMOGLOBIN A1C 5.2 % (4.5-6.2)
[2017-08-02 07:22] LABS: THYROID STIMULATING HORMONE 4.12 uIU/mL (0.36-3.74)
[2017-08-02] MEDS: PARoxetine HCL 10 MG TABLET PO SCH (08:17)
[2017-08-02] MEDS ORDERED: LOPERAMIDE HCL 2 MG CAPSULE PO PRN ×2 (10:00→15:30)
[2017-08-02] MEDS ORDERED: MAGNESIUM HYDROXIDE SUSPENSION 30 ML UDCUP PO PRN (10:00)
[2017-08-02] MEDS ORDERED: PROMETHAZINE HCL 25 MG TABLET PO PRN ×2 (10:00→15:30)
[2017-08-02] MEDS ORDERED: MAG HYDROX/AL HYDROX/SIMETH ES 30 ML SUSPENSION UDCUP PO PRN (10:00)
[2017-08-02] MEDS ORDERED: GuaiFENesin/D-METHORPHAN [SUGAR-FREE] 200-20MG/10 ML SYRUP UDCUP PO PRN ×2 (10:00→15:30)
[2017-08-02] MEDS ORDERED: HydrOXYzine PAMOATE 50 MG CAPSULE PO PRN ×2 (10:00→15:30)
[2017-08-02] MEDS ORDERED: ACETAMINOPHEN 325 MG TABLET PO PRN (10:00)
[2017-08-02] MEDS ORDERED: DIAZEPAM 10 MG TABLET PO PRN (15:30)
[2017-08-02] MEDS ORDERED: CYANOCOBALAMIN 1,000 MCG/ML VIAL IM ONE (15:30)
[2017-08-02] MEDS ORDERED: DIAZEPAM 10 MG TABLET PO ONE (15:30)
[2017-08-02] MEDS: GABAPENTIN 300 MG CAPSULE PO SCH ×2 (16:00→20:30)
[2017-08-02] MEDS: THIAMINE HCL 100 MG TABLET PO SCH (16:00)
[2017-08-02] MEDS: ZIPRASIDONE HCL 20 MG CAPSULE PO SCH (16:35)
[2017-08-02] MEDS ORDERED: THIAMINE HCL 100 MG TABLET PO SCH (17:00)
[2017-08-03 03:05] VITALS: BP 109/64
[2017-08-03] MEDS: ZIPRASIDONE HCL 20 MG CAPSULE PO SCH (06:57)
[2017-08-03] MEDS ORDERED: DIAZEPAM 10 MG TABLET PO PRN (07:00)
[2017-08-03 07:02] VITALS: BP 104/69
[2017-08-03 08:00] VITALS: BP 110/60
[2017-08-03] MEDS: THIAMINE HCL 100 MG TABLET PO SCH ×2 (08:18→16:09)
[2017-08-03] MEDS: FOLIC ACID 1 MG TABLET PO SCH (08:18)
[2017-08-03] MEDS: NALTREXONE HCL 50 MG TABLET PO SCH (08:19)
[2017-08-03] MEDS: DIAZEPAM 10 MG TABLET PO SCH ×4 (08:20→20:13)
[2017-08-03] MEDS: MULTIVITAMINS WITH MINERALS, THERAPEUTIC TABLET PO SCH (08:20)
[2017-08-03] MEDS: GABAPENTIN 300 MG CAPSULE PO SCH ×4 (08:20→20:13)
[2017-08-03] MEDS ORDERED: FOLIC ACID 1 MG TABLET PO SCH (09:00)
[2017-08-03] MEDS ORDERED: MULTIVITAMINS WITH MINERALS, THERAPEUTIC TABLET PO SCH (09:00)
[2017-08-03 16:38] VITALS: BP 111/62
[2017-08-03 16:47] VITALS: BP 111/62
[2017-08-03] MEDS: ZIPRASIDONE HCL 40 MG CAPSULE PO SCH (17:31)
[2017-08-04 05:44] VITALS: BP 101/63
[2017-08-04] MEDS: ZIPRASIDONE HCL 40 MG CAPSULE PO SCH (06:38)
[2017-08-04 07:43] LABS: CREATINE KINASE, TOTAL 84 U/L (26-192); FREE T4 (FREE THYROXINE) 0.59 ng/dL (0.76-1.46); THYROID STIMULATING HORMONE 3.25 uIU/mL (0.36-3.74)
[2017-08-04 08:00] VITALS: BP 99/70
[2017-08-04] MEDS: NALTREXONE HCL 50 MG TABLET PO SCH (08:33)
[2017-08-04] MEDS: MULTIVITAMINS WITH MINERALS, THERAPEUTIC TABLET PO SCH (08:33)
[2017-08-04] MEDS: GABAPENTIN 300 MG CAPSULE PO SCH ×4 (08:33→20:29)
[2017-08-04] MEDS: DIAZEPAM 10 MG TABLET PO SCH ×4 (08:33→20:30)
[2017-08-04] MEDS: THIAMINE HCL 100 MG TABLET PO SCH ×2 (08:33→16:24)
[2017-08-04] MEDS: FOLIC ACID 1 MG TABLET PO SCH (08:34)
[2017-08-04 15:36] VITALS: BP 113/77
[2017-08-04 16:36] VITALS: BP 105/70
[2017-08-04] MEDS: ZIPRASIDONE HCL 60 MG CAPSULE PO SCH (20:00)
[2017-08-05 06:40] VITALS: BP 108/61
[2017-08-05] MEDS ORDERED: DIAZEPAM 5 MG TABLET PO PRN (07:00)
[2017-08-05] MEDS: ZIPRASIDONE HCL 60 MG CAPSULE PO SCH (07:17)
[2017-08-05 08:15] VITALS: BP 110/62
[2017-08-05] MEDS: GABAPENTIN 300 MG CAPSULE PO SCH ×2 (08:53→12:19)
[2017-08-05] MEDS: MULTIVITAMINS WITH MINERALS, THERAPEUTIC TABLET PO SCH (08:54)
[2017-08-05] MEDS: THIAMINE HCL 100 MG TABLET PO SCH ×2 (08:54→16:00)
[2017-08-05] MEDS: DIAZEPAM 5 MG TABLET PO SCH ×4 (08:54→20:17)
[2017-08-05] MEDS: NALTREXONE HCL 50 MG TABLET PO SCH (08:55)
[2017-08-05] MEDS: FOLIC ACID 1 MG TABLET PO SCH (08:55)
[2017-08-05] MEDS: PREGABALIN 25 MG CAPSULE PO SCH (16:00)
[2017-08-05 16:34] VITALS: BP 110/74
[2017-08-05 16:35] VITALS: BP 110/74
[2017-08-05] MEDS: ZIPRASIDONE HCL 80 MG CAPSULE PO SCH (17:01)
[2017-08-06] MEDS: ZIPRASIDONE HCL 80 MG CAPSULE PO SCH (06:50)
[2017-08-06] MEDS ORDERED: DIAZEPAM 5 MG TABLET PO PRN (07:00)
[2017-08-06 08:30] VITALS: BP 104/53
[2017-08-06] MEDS: FOLIC ACID 1 MG TABLET PO SCH (08:44)
[2017-08-06] MEDS: THIAMINE HCL 100 MG TABLET PO SCH (08:44)
[2017-08-06] MEDS: PREGABALIN 25 MG CAPSULE PO SCH ×2 (08:44→12:34)
[2017-08-06] MEDS: MULTIVITAMINS WITH MINERALS, THERAPEUTIC TABLET PO SCH (08:44)
[2017-08-06] MEDS: NALTREXONE HCL 50 MG TABLET PO SCH (08:44)
[2017-08-06] MEDS ORDERED: NALT50TA PO (11:19)
[2017-08-06] MEDS ORDERED: PREG25 PO (11:19)
[2017-08-06] MEDS ORDERED: ZIPR80CA2 PO (11:19)
== END 2017-08-06 16:00 | disposition home or self-care (01) | DRG 885 ==
LOC: EMS 19:48 → 3EX 22:30
PROVIDERS: ATTEND Psychiatry & Neurology Psychiatry
DX: F25.1 Schizoaffective disorder, depressive type (principal); R45.851 Suicidal ideations; G40.909 Epilepsy, unspecified, not intractable, without status epilepticus; B19.20 Unspecified viral hepatitis C without hepatic coma; E03.9 Hypothyroidism, unspecified; E78.00 Pure hypercholesterolemia, unspecified; E78.5 Hyperlipidemia, unspecified; I10 Essential (primary) hypertension; J44.9 Chronic obstructive pulmonary disease, unspecified; F31.9 Bipolar disorder, unspecified; K21.9 Gastro-esophageal reflux disease without esophagitis; F14.90 Cocaine use, unspecified, uncomplicated; F12.90 Cannabis use, unspecified, uncomplicated; F15.90 Other stimulant use, unspecified, uncomplicated; F17.210 Nicotine dependence, cigarettes, uncomplicated; Z59.0 Homelessness; Z91.14 Patient's other noncompliance with medication regimen; Z91.5 Personal history of self-harm; Z88.8 Allergy status to other drugs, medicaments and biological substances
CPT/HCPCS: 83036; 83735; 84439; 84443; 93005; 99285; G0480; J3420

== ENCOUNTER 2017-08-11 11:51 | Emergency (ER) | payer MEDICARE, MEDICAID ==
[~2017-08-11] VITALS: Ht 170.2 cm; Wt 75.9 kg
[~2017-08-11 11:51] MED LIST changes: -DIVA500T52 PO; -GABA-531 PO; +NALT50TA PO; -PARO10TA89 PO; +PREG25 PO; -THIA100T67 PO
[2017-08-11] MEDS ORDERED: TRAZ-144 PO (12:02)
[2017-08-11 12:22] LABS: GLUCOSE,POINT OF CARE 105 MG/DL (70-110)
[2017-08-11] MEDS ORDERED: SODIUM CHLORIDE 0.9% 1,000 ML IV ONE (12:30)
[2017-08-11 13:15] LABS: BASOPHILS % (AUTO) 0.6 % (0.0-2.0); EOSINOPHILS % (AUTO) 1.6 % (1.0-6.0); HEMATOCRIT 35.9 % (36-46); HEMOGLOBIN 12.4 g/dL (12.0-16.0); LYMPHOCYTES # (AUTO) 1.9 K/uL (1.0-4.8); LYMPHOCYTES % (AUTO) 21.6 % (22.0-44.0); MEAN CORPUSCULAR HEMOGLOBIN 33.7 pg (26.0-34.0); MEAN CORPUSCULAR HGB CONC 34.6 G/dL (31.0-37.0); MEAN CORPUSCULAR VOLUME 98 fL (80-100); MONOCYTES # (AUTO) 0.5 K/uL (0.1-1.0); MONOCYTES % (AUTO) 5.4 % (2.0-9.0); NEUTROPHILS # (AUTO) 6.2 K/uL (1.8-7.7); NEUTROPHILS % (AUTO) 70.8 % (40.0-70.0); PLATELET COUNT (AUTO) 258 K/uL (150-450); RED BLOOD CELL COUNT(AUTO) 3.68 MIL/uL (4.00-5.20); RED CELL DISTRIBUTION WIDTH 14.4 % (11.5-14.5)
[2017-08-11 13:27] LABS: ANION GAP 4 mmol/L (8-16); CARBON DIOXIDE 29 mmol/L (22-29); CHLORIDE 106 mmol/L (98-107); CREATININE 0.71 mg/dL (0.60-1.30); GLOMERULAR FILTR. RATE CALC > 60 mL/min (>60); GLUCOSE,RANDOM 117 mg/dL (70-110); POTASSIUM 3.7 mmol/L (3.5-5.1); SODIUM SERUM 139 mmol/L (136-145); UREA NITROGEN, BLOOD 18 mg/dL (7-18)
[2017-08-11 13:33] LABS: ALANINE AMINOTRANSFERASE 17 U/L (12-78); ALBUMIN 3.1 g/dL (3.4-5.0); ALKALINE PHOSPHATASE 51 U/L (46-116); ASPARTATE AMINOTRANSFERASE 14 U/L (15-37); BILIRUBIN,TOTAL 0.2 mg/dL (0.1-1.0); CREATINE KINASE, TOTAL 55 U/L (26-192); TOTAL PROTEIN, SERUM 6.2 g/dL (6.4-8.2)
[2017-08-11 13:37] LABS: B-TYPE NATRIURETIC PEPTIDE 21 pg/mL (0-100)
[2017-08-11 13:54] VITALS: BP 130/70
== END 2017-08-11 14:51 | disposition home or self-care (01) ==
LOC: EMS 11:54
DX: I95.9 Hypotension, unspecified (principal); R00.1 Bradycardia, unspecified; E86.0 Dehydration; J45.909 Unspecified asthma, uncomplicated; J44.9 Chronic obstructive pulmonary disease, unspecified; E78.00 Pure hypercholesterolemia, unspecified; E03.9 Hypothyroidism, unspecified; F14.90 Cocaine use, unspecified, uncomplicated; F12.90 Cannabis use, unspecified, uncomplicated; F19.90 Other psychoactive substance use, unspecified, uncomplicated; F17.210 Nicotine dependence, cigarettes, uncomplicated; Z88.8 Allergy status to other drugs, medicaments and biological substances
CPT/HCPCS: 93005; 96360; 96361; 99285

== ENCOUNTER 2017-08-13 05:38 | Emergency (ER) | payer MEDICARE, MEDICAID ==
[~2017-08-13] VITALS: Ht 167.6 cm; Wt 70.5 kg
[~2017-08-13 05:38] MED LIST changes: +TRAZ-144 PO
[2017-08-13 06:48] LABS: BASOPHILS % (AUTO) 0.6 % (0.0-2.0); EOSINOPHILS % (AUTO) 0.7 % (1.0-6.0); HEMATOCRIT 37.7 % (36-46); HEMOGLOBIN 13.1 g/dL (12.0-16.0); LYMPHOCYTES # (AUTO) 2.2 K/uL (1.0-4.8); LYMPHOCYTES % (AUTO) 18.2 % (22.0-44.0); MEAN CORPUSCULAR HEMOGLOBIN 33.6 pg (26.0-34.0); MEAN CORPUSCULAR HGB CONC 34.8 G/dL (31.0-37.0); MEAN CORPUSCULAR VOLUME 97 fL (80-100); MONOCYTES # (AUTO) 0.6 K/uL (0.1-1.0); MONOCYTES % (AUTO) 5.1 % (2.0-9.0); NEUTROPHILS % (AUTO) 75.4 % (40.0-70.0); PLATELET COUNT (AUTO) 286 K/uL (150-450); RED BLOOD CELL COUNT(AUTO) 3.91 MIL/uL (4.00-5.20)
[2017-08-13 07:14] LABS: ANION GAP 10 mmol/L (8-16); CARBON DIOXIDE 25 mmol/L (22-29); CHLORIDE 105 mmol/L (98-107); CREATININE 0.67 mg/dL (0.60-1.30); GLOMERULAR FILTR. RATE CALC > 60 mL/min (>60); GLUCOSE,RANDOM 92 mg/dL (70-110); POTASSIUM 3.6 mmol/L (3.5-5.1); SODIUM SERUM 140 mmol/L (136-145); UREA NITROGEN, BLOOD 11 mg/dL (7-18)
[2017-08-13 07:20] LABS: ALANINE AMINOTRANSFERASE 17 U/L (12-78); ALBUMIN 3.6 g/dL (3.4-5.0); ALKALINE PHOSPHATASE 65 U/L (46-116); ASPARTATE AMINOTRANSFERASE 20 U/L (15-37); BILIRUBIN,TOTAL 0.2 mg/dL (0.1-1.0); TOTAL PROTEIN, SERUM 7.1 g/dL (6.4-8.2)
[2017-08-13 10:02] VITALS: BP 115/70
== END 2017-08-13 11:13 | disposition home or self-care (01) ==
LOC: EMS 05:40
DX: F25.9 Schizoaffective disorder, unspecified (principal); F31.9 Bipolar disorder, unspecified; E03.9 Hypothyroidism, unspecified; I10 Essential (primary) hypertension; E78.00 Pure hypercholesterolemia, unspecified; J44.9 Chronic obstructive pulmonary disease, unspecified; J45.909 Unspecified asthma, uncomplicated; F17.210 Nicotine dependence, cigarettes, uncomplicated; F12.90 Cannabis use, unspecified, uncomplicated; F15.90 Other stimulant use, unspecified, uncomplicated; F14.90 Cocaine use, unspecified, uncomplicated; Z88.8 Allergy status to other drugs, medicaments and biological substances
CPT/HCPCS: 36415; 80053; 85025; 96372; 99284; 99406; G0480; J3230

== ENCOUNTER → 2017-10-14 | Outpatient (CLI) | payer MEDICARE, MEDICAID ==
[~2017-10-14] MED LIST changes: -TRAZ-144 PO; +TRAZ-219 PO
[2017-10-19 15:01] LABS: AMPHET/METH SCREEN,URINE NEGATIVE (NEGATIVE); BARBITURATE SCREEN, URINE NEGATIVE (NEGATIVE); BENZODIAZEPINES SCREEN,URINE NEGATIVE (NEGATIVE); CANNABINOID SCREEN,URINE NEGATIVE (NEGATIVE); COCAINE SCREEN,URINE NEGATIVE (NEGATIVE); METHADONE SCREEN, URINE NEGATIVE (NEGATIVE); PHENCYCLIDINE SCREEN,URINE NEGATIVE (NEGATIVE)
[2017-10-19 15:02] LABS: OPIATE SCREEN,URINE NEGATIVE (NEGATIVE)
== END | disposition home or self-care (01) ==
LOC: LABMN 11:00
PROVIDERS: ATTEND Psychiatry & Neurology Psychiatry
DX: F25.9 Schizoaffective disorder, unspecified (principal); I10 Essential (primary) hypertension; J44.9 Chronic obstructive pulmonary disease, unspecified; K21.9 Gastro-esophageal reflux disease without esophagitis; E78.00 Pure hypercholesterolemia, unspecified; E11.9 Type 2 diabetes mellitus without complications; E03.9 Hypothyroidism, unspecified; F12.90 Cannabis use, unspecified, uncomplicated; F14.90 Cocaine use, unspecified, uncomplicated; Z88.8 Allergy status to other drugs, medicaments and biological substances; Z79.899 Other long term (current) drug therapy

== ENCOUNTER → 2017-11-11 | Outpatient (CLI) | payer MEDICARE, MEDICAID ==
[~2017-11-11] MED LIST changes: +REGADENOSON 0.4 MG/5 ML PF SYRINGE IVP ONE; +SESTAMIBI TC99M/UD ISOTOPE 1 EA INJ INJ ONE
[2017-11-11 08:30] VITALS: BP 102/71
[2017-11-11 10:19] VITALS: BP 98/75
== END | disposition home or self-care (01) ==
LOC: CARDMN 08:14
PROVIDERS: ATTEND Internal Medicine Cardiovascular Disease
DX: I08.1 Rheumatic disorders of both mitral and tricuspid valves (principal); I25.89 Other forms of chronic ischemic heart disease
CPT/HCPCS: 78452; 93017; 93306; A9500

== ENCOUNTER → 2018-05-05 | Outpatient (CLI) | payer MEDICARE, MEDICAID, SELFPAY ==
[~2018-05-05] MED LIST changes: -REGADENOSON 0.4 MG/5 ML PF SYRINGE IVP ONE; -SESTAMIBI TC99M/UD ISOTOPE 1 EA INJ INJ ONE
== END | disposition home or self-care (01) ==
LOC: RADMN 14:35
PROVIDERS: ATTEND Internal Medicine Geriatric Medicine
DX: M21.242 Flexion deformity, left finger joints (principal); M79.89 Other specified soft tissue disorders

== ENCOUNTER 2018-08-06 17:33 | Emergency (ER) | payer MEDICARE, OTHER ==
[~2018-08-06] VITALS: Ht 172.7 cm; Wt 78.2 kg
[~2018-08-06 17:33] MED LIST changes: -TRAZ-219 PO; +TRAZ-252 PO
[2018-08-06 19:04] LABS: BASOPHILS % (AUTO) 1.4 % (0.0-2.0); EOSINOPHILS % (AUTO) 1.5 % (1.0-6.0); HEMATOCRIT 39.9 % (36-46); HEMOGLOBIN 13.2 g/dL (12.0-16.0); MEAN CORPUSCULAR HEMOGLOBIN 33.4 pg (26.0-34.0); MEAN CORPUSCULAR HGB CONC 33.2 G/dL (31.0-37.0); MEAN CORPUSCULAR VOLUME 101 fL (80-100); MONOCYTES # (AUTO) 0.4 K/uL (0.1-1.0); MONOCYTES % (AUTO) 4.4 % (2.0-9.0); NEUTROPHILS # (AUTO) 5.7 K/uL (1.8-7.7); NEUTROPHILS % (AUTO) 60.7 % (40.0-70.0); PLATELET COUNT (AUTO) 313 K/uL (150-450); RED BLOOD CELL COUNT(AUTO) 3.96 MIL/uL (4.00-5.20); RED CELL DISTRIBUTION WIDTH 13.5 % (11.5-14.5)
[2018-08-06 19:18] LABS: ANION GAP 9 mmol/L (8-16); CARBON DIOXIDE 26 mmol/L (22-29); CHLORIDE 105 mmol/L (98-107); CREATININE 0.98 mg/dL (0.60-1.30); GLOMERULAR FILTR. RATE CALC 60 mL/min (>60); GLUCOSE,RANDOM 113 mg/dL (70-110); POTASSIUM 3.3 mmol/L (3.5-5.1); SODIUM SERUM 140 mmol/L (136-145); UREA NITROGEN, BLOOD 22 mg/dL (7-18)
[2018-08-06 19:24] LABS: ALANINE AMINOTRANSFERASE 15 U/L (12-78); ALBUMIN 3.5 g/dL (3.4-5.0); ALKALINE PHOSPHATASE 43 U/L (46-116); ASPARTATE AMINOTRANSFERASE 15 U/L (15-37); BILIRUBIN,TOTAL 0.1 mg/dL (0.1-1.0); TOTAL PROTEIN, SERUM 6.5 g/dL (6.4-8.2)
[2018-08-06] MEDS ORDERED: POTASSIUM CHLORIDE 20 MEQ ER TABLET PO ONE (20:30)
[2018-08-06 21:18] LABS: AMPHET/METH SCREEN,URINE NEGATIVE (NEGATIVE); BARBITURATE SCREEN, URINE NEGATIVE (NEGATIVE); BENZODIAZEPINES SCREEN,URINE NEGATIVE (NEGATIVE); CANNABINOID SCREEN,URINE NEGATIVE (NEGATIVE); COCAINE SCREEN,URINE NEGATIVE (NEGATIVE); METHADONE SCREEN, URINE NEGATIVE (NEGATIVE); OPIATE SCREEN,URINE NEGATIVE (NEGATIVE)
[2018-08-06 21:19] LABS: PHENCYCLIDINE SCREEN,URINE NEGATIVE (NEGATIVE)
[2018-08-07 12:53] VITALS: BP 126/71
== END 2018-08-07 13:45 | disposition other institution (70) ==
LOC: EMS 17:34
DX: F32.9 Major depressive disorder, single episode, unspecified (principal); F25.9 Schizoaffective disorder, unspecified; F17.210 Nicotine dependence, cigarettes, uncomplicated; F31.9 Bipolar disorder, unspecified; J45.909 Unspecified asthma, uncomplicated; E78.00 Pure hypercholesterolemia, unspecified; I10 Essential (primary) hypertension; E03.9 Hypothyroidism, unspecified; F12.90 Cannabis use, unspecified, uncomplicated; F19.90 Other psychoactive substance use, unspecified, uncomplicated; F14.90 Cocaine use, unspecified, uncomplicated; F15.90 Other stimulant use, unspecified, uncomplicated; Z88.8 Allergy status to other drugs, medicaments and biological substances
CPT/HCPCS: 36415; 80053; 80307; 85025; 99285; 99406; G0480

== ENCOUNTER → 2018-12-14 | Outpatient (CLI) | payer MEDICARE, OTHER ==
[2018-12-15 16:34] LABS: APPEARANCE,URINE CLEAR (CLEAR); PH,URINE 7.5 (5.0-8.0)
[2018-12-15 16:35] LABS: BILIRUBIN,URINE NEGATIVE (NEGATIVE); GLUCOSE, URINE (UA) NEGATIVE (NEGATIVE); KETONES,URINE NEGATIVE (NEGATIVE); LEUKOCYTE ESTERASE ,URINE NEGATIVE (NEGATIVE); NITRATE,URINE NEGATIVE (NEGATIVE); OCCULT BLOOD,URINE NEGATIVE (NEGATIVE); PROTEIN,URINE NEGATIVE (NEGATIVE); UROBILINOGEN,URINE 0.2 mg/dL (<=1.0)
== END | disposition home or self-care (01) ==
LOC: LABMN 13:00
PROVIDERS: ATTEND Psychiatry & Neurology Psychiatry
DX: F25.9 Schizoaffective disorder, unspecified (principal); I10 Essential (primary) hypertension; E78.5 Hyperlipidemia, unspecified; E03.9 Hypothyroidism, unspecified; J44.9 Chronic obstructive pulmonary disease, unspecified; Z79.899 Other long term (current) drug therapy
CPT/HCPCS: 87086

== ENCOUNTER 2019-03-26 12:53 | Emergency (ER) | payer MEDICARE ==
[~2019-03-26] VITALS: Ht 170.2 cm; Wt 86.4 kg
[2019-03-26 13:37] LABS: BASOPHILS % (AUTO) 0.9 % (0.0-2.0); EOSINOPHILS % (AUTO) 0.9 % (1.0-6.0); HEMATOCRIT 37.9 % (36-46); HEMOGLOBIN 13.1 g/dL (12.0-16.0); LYMPHOCYTES # (AUTO) 1.9 K/uL (1.0-4.8); LYMPHOCYTES % (AUTO) 18.3 % (22.0-44.0); MEAN CORPUSCULAR HEMOGLOBIN 34.6 pg (26.0-34.0); MEAN CORPUSCULAR HGB CONC 34.5 G/dL (31.0-37.0); MEAN CORPUSCULAR VOLUME 100 fL (80-100); MONOCYTES # (AUTO) 0.4 K/uL (0.1-1.0); MONOCYTES % (AUTO) 3.7 % (2.0-9.0); NEUTROPHILS # (AUTO) 7.8 K/uL (1.8-7.7); NEUTROPHILS % (AUTO) 76.2 % (40.0-70.0); PLATELET COUNT (AUTO) 324 K/uL (150-450); RED BLOOD CELL COUNT(AUTO) 3.78 MIL/uL (4.00-5.20); RED CELL DISTRIBUTION WIDTH 13.3 % (11.5-14.5)
[2019-03-26 13:45] LABS: ANION GAP 9 mmol/L (8-16); CALCIUM, TOTAL 8.4 mg/dL (8.8-10.5); CARBON DIOXIDE 28 mmol/L (22-29); CHLORIDE 107 mmol/L (98-107); CREATININE 0.74 mg/dL (0.60-1.30); GLOMERULAR FILTR. RATE CALC > 60 mL/min (>60); GLUCOSE,RANDOM 92 mg/dL (70-110); POTASSIUM 3.4 mmol/L (3.5-5.1); SODIUM SERUM 144 mmol/L (136-145); UREA NITROGEN, BLOOD 14 mg/dL (7-18)
[2019-03-26 13:51] LABS: ALANINE AMINOTRANSFERASE 17 U/L (12-78); ALBUMIN 3.5 g/dL (3.4-5.0); ALKALINE PHOSPHATASE 44 U/L (46-116); ASPARTATE AMINOTRANSFERASE 17 U/L (15-37); BILIRUBIN,TOTAL 0.2 mg/dL (0.1-1.0); TOTAL PROTEIN, SERUM 6.5 g/dL (6.4-8.2)
[2019-03-26 15:00] VITALS: BP 127/70
[2019-03-26] MEDS ORDERED: HALOPERIDOL 5 MG TABLET PO ONE (15:15)
[2019-03-26 15:25] LABS: AMPHET/METH SCREEN,URINE NEGATIVE (NEGATIVE); BARBITURATE SCREEN, URINE NEGATIVE (NEGATIVE); BENZODIAZEPINES SCREEN,URINE NEGATIVE (NEGATIVE); CANNABINOID SCREEN,URINE NEGATIVE (NEGATIVE); COCAINE SCREEN,URINE NEGATIVE (NEGATIVE); METHADONE SCREEN, URINE NEGATIVE (NEGATIVE); OPIATE SCREEN,URINE NEGATIVE (NEGATIVE)
[2019-03-26 15:29] LABS: PHENCYCLIDINE SCREEN,URINE NEGATIVE (NEGATIVE)
== END 2019-03-26 15:28 | disposition home or self-care (01) ==
LOC: EMS 12:56
DX: F25.1 Schizoaffective disorder, depressive type (principal); E78.00 Pure hypercholesterolemia, unspecified; E03.9 Hypothyroidism, unspecified; I10 Essential (primary) hypertension; J44.9 Chronic obstructive pulmonary disease, unspecified; F17.210 Nicotine dependence, cigarettes, uncomplicated; F10.20 Alcohol dependence, uncomplicated; F15.90 Other stimulant use, unspecified, uncomplicated; Z79.899 Other long term (current) drug therapy; Z98.890 Other specified postprocedural states; Z88.8 Allergy status to other drugs, medicaments and biological substances
CPT/HCPCS: 36415; 80053; 80307; 85025; 99284; G0480

== ENCOUNTER 2019-08-25 12:06 | Emergency (ER) | payer MEDICARE, MEDICAID, SELFPAY ==
[~2019-08-25] VITALS: Ht 172.7 cm; Wt 81.8 kg
[2019-08-25 14:14] LABS: BASOPHILS % (AUTO) 0.7 % (0.0-2.0); EOSINOPHILS % (AUTO) 0.8 % (1.0-6.0); HEMATOCRIT 40.4 % (36-46); HEMOGLOBIN 14.1 g/dL (12.0-16.0); LYMPHOCYTES # (AUTO) 2.4 K/uL (1.0-4.8); LYMPHOCYTES % (AUTO) 26.8 % (22.0-44.0); MEAN CORPUSCULAR HEMOGLOBIN 35.2 pg (26.0-34.0); MEAN CORPUSCULAR VOLUME 101 fL (80-100); MONOCYTES # (AUTO) 0.4 K/uL (0.1-1.0); MONOCYTES % (AUTO) 4.8 % (2.0-9.0); NEUTROPHILS % (AUTO) 66.9 % (40.0-70.0); PLATELET COUNT (AUTO) 332 K/uL (150-450); RED BLOOD CELL COUNT(AUTO) 4.02 MIL/uL (4.00-5.20); RED CELL DISTRIBUTION WIDTH 14.3 % (11.5-14.5)
[2019-08-25 14:31] LABS: ANION GAP 13 mmol/L (8-16); CALCIUM, TOTAL 9.1 mg/dL (8.8-10.5); CARBON DIOXIDE 28 mmol/L (22-29); CHLORIDE 105 mmol/L (98-107); CREATININE 0.93 mg/dL (0.60-1.30); GLOMERULAR FILTR. RATE CALC > 60 mL/min (>60); GLUCOSE,RANDOM 89 mg/dL (70-110); POTASSIUM 4.3 mmol/L (3.5-5.1); SODIUM SERUM 146 mmol/L (136-145); UREA NITROGEN, BLOOD 16 mg/dL (7-18)
[2019-08-25 14:37] LABS: ALANINE AMINOTRANSFERASE 19 U/L (12-78); ALBUMIN 4.1 g/dL (3.4-5.0); ALKALINE PHOSPHATASE 44 U/L (46-116); ASPARTATE AMINOTRANSFERASE 17 U/L (15-37); BILIRUBIN,TOTAL 0.4 mg/dL (0.1-1.0); TOTAL PROTEIN, SERUM 7.3 g/dL (6.4-8.2)
[2019-08-25 15:48] VITALS: BP 130/80
== END 2019-08-25 15:51 | disposition home or self-care (01) ==
LOC: EMS 12:11
DX: F25.9 Schizoaffective disorder, unspecified (principal); F41.9 Anxiety disorder, unspecified; G47.00 Insomnia, unspecified; F31.9 Bipolar disorder, unspecified; J44.9 Chronic obstructive pulmonary disease, unspecified; E78.00 Pure hypercholesterolemia, unspecified; I10 Essential (primary) hypertension; F14.90 Cocaine use, unspecified, uncomplicated; F12.90 Cannabis use, unspecified, uncomplicated; F19.90 Other psychoactive substance use, unspecified, uncomplicated; Z88.8 Allergy status to other drugs, medicaments and biological substances
CPT/HCPCS: 36415; 80053; 85025; 99284; G0480